=== PATIENT | male | born 1950 | race Caucasian/White ===

== ENCOUNTER → 2016-07-18 | Day surgery (SDC) | payer OTHER ==
--- NOTE | 2016-07-09 13:40 | DIAGNOSTIC IMAGING REPORT ---
CHEST 2 VIEWS ROUTINE HISTORY: Pre-op. LEFT SHOULDER IMPINGEMENT SYNDROME, AC JOINT COMPARISON: None. FINDINGS: The lungs are clear. Cardiac silhouette is top normal in size. Coronary artery stent is noted. No pleural effusions. No pneumothorax. IMPRESSION: No acute process. Electronically signed by: Aleksander Ventura M.D. 07/09/2016 1:39 PM Dictated Date/Time: 07/09/2016 1:35 PM
[2016-07-09 14:37] LABS: BASO % 0.4 %; BASO ABS # 0.02 K/uL (0-0.2); COMPLETE YES; EOS % 0.9 %; HEMATOCRIT 39.7 % (42-52); IG% 0.4 %; LYMPH % 28.8 %; LYMPH ABS # 1.58 K/uL (1.2-3.4); MEAN CORPUSCULAR HEMOGLOBIN 30.2 pg (25-34); MEAN CORPUSCULAR HGB CONC 33.5 g/dl (32-36); MEAN PLATELET VOLUME 9.4 fL (7.4-10.4); MONO % 12.6 %; NEUT % 56.9 %; PLATELET COUNT 269 K/uL (130-400); RED BLOOD COUNT 4.41 M/uL (4.7-6.1); WHITE BLOOD COUNT 5.49 K/uL (4.8-10.8)
[2016-07-09 14:49] LABS: BLOOD UREA NITROGEN 21 mg/dl (7-18); BUN/CREATININE RATIO 17.5 (10-20); CALCIUM 8.8 mg/dl (8.5-10.1); CARBON DIOXIDE 25 mmol/L (21-32); CHLORIDE 108 mmol/L (98-107); GLUCOSE 143 mg/dl (70-99); POTASSIUM 4.8 mmol/L (3.5-5.1); SODIUM 142 mmol/L (136-145)
[2016-07-09 14:52] LABS: PROTHROMBIN TIME (PATIENT) 11.1 SECONDS (9.0-12.0)
[2016-07-11 10:20] VITALS: Ht 188 cm; Wt 103.2 kg
[~2016-07-18] VITALS: Ht 188 cm; Wt 103.2 kg
[~2016-07-18] MED LIST: ACT30 PO; ASCA500 PO; ASPCH81X PO; ATOR-26 PO; ATROPINE SULFATE 0.1 MG/ML 5ML SYR IV PRN; BUPIVACAINE/EPINEPHRINE 0.25% 1:200,000 30 ML VIAL ONE; CEFAZOLIN 2000 MG/60 ML D5W IV SCH; CHOL100010 PO; DEXAMETHASONE SOD INJ 4 MG/ML VIAL ONE; EpHEDrine SULFATE INJ 50 MG/ML AMP IV PRN; EpINEphrine INJ 1MG/ML AMP 1 MG/ML AMP ONE; FENTANYL CITRATE INJ 50 MCG/1 ML 2 ML VIAL IV PRN; FENTANYL CITRATE INJ 50 MCG/1 ML 2 ML VIAL ONE; HYDROmorphone INJ 1 MG/ML SYR IV PRN; KETO10TA PO; LABETALOL HCL IV 5 MG/ML 20ML IV PRN; LACTATED RINGER'S 1000ML 1,000 ML IV SCH; LIDOCAINE HCL 1% MPF 2 ML VIAL ONE; LIDOCAINE HCL 2% 2 ML VIAL (20MG/ML) ONE; LISI-789 PO; MAGN250T3 PO; MEPERIDINE HCL 25 MG/ML CARP IV PRN; METO25TA56 PO; MIDAZOLAM HCL 1 MG/ML 2ML VIAL ONE; MULT-506 PO; ONDANSETRON INJ 2 MG/ML 2 ML VIAL IV PRN; ONDANSETRON INJ 2 MG/ML 2 ML VIAL ONE; OXYC-57 PO; OXYCODONE/ACETAMINOPHEN 5-325 TAB PO PRN; PROPOFOL IV EMULSION 10 MG/ML 20 ML VIAL IV ONE; ROPIVACAINE 0.5% 5 MG/ML 30 ML VIAL ONE; SODIUM CHLORIDE 0.9% 1000ML 1,000 ML IV SCH; VENL150C56 PO
--- NOTE | 2016-07-18 07:01 | History & Physical Bridge - SC ---
H&P Re-Evaluation Bridge Note: I have examined the patient, reviewed the History & Physical and in the interval since the performance of the History & Physical I have noted the following changes of clinical significance: No changes noted
--- NOTE | 2016-07-18 09:45 | [facility] Post Operative Brief Note ---
Immediate Operative Summary Operative Date Jul 18, 2016. Pre-Operative Diagnosis Impingement and acromial clavicular joint arthritis left shoulder Post-Operative Diagnosis same Procedure(s) Performed Left Shoulder Arthroscopy, Subacromial Decompression, Distal Clavicle Resection , Open Biceps Tenodesis Surgeon Dr Elizalde Tacker Off Surgeon(s) Julius Ochoa PA-C Findings as above Specimens 0 Complication(s) None Disposition Recovery Room / PACU
--- NOTE | 2016-07-18 10:02 | Discharge Instructions-SurgCtr ---
Discharge Instructions Visit Reason for Visit: Left Shoulder Impingement Syndrome, Ac Joint Discharge Discharge Diagnosis / Problem: SAME ABOVE Discharge Goals Goal(s): Decrease discomfort, Improve function Medications Stopped Medications Name(s): asa 81 mg, last dose 07/11/16 Restart Stopped Medication(s): MAY RESTART 07/18/2016 Activity Recommendations Activity Limitations: as noted below Lifting Limitations: until after follow-up appointment Exercise/Sports Limitations: until after follow-up appointment Shower/Bathe: may shower/bathe in 3 days Anesthesia . Post Anesthesia Instructions: If you have had General Anesthesia or IV Sedation: * Do not drive today. * Resume driving when surgeon permits. * Do not make important decisions or sign legal documents today. * Call surgeon for: 1. Temperature elevations greater than 101 degrees F. 2. Uncontrollable pain. 3. Excessive bleeding. 4. Persistent nausea and vomiting. 5. Medication intolerance (nausea, vomiting or rash). * For nausea and vomiting use only clear liquids such as: tea, soda, bouillon until nausea subsides, then gradually increase diet as tolerated. * If you have any concerns or questions, call your surgeon's office. If physician is unavailable and it is an emergency, call 911 or go to the nearest emergency room. . Instructions / Follow-Up Instructions / Follow-Up MEDICATIONS: * Resume previous medications unless instructed otherwise by your surgeon. * Always take pain medication on a full stomach or with food to avoid upset stomach. * Do not drink alcohol or drive while taking narcotics. * Ibuprofen or Tylenol may be taken if narcotic not needed. SPECIAL CARE INSTRUCTIONS: __ None _X_ Keep extremity elevated and iced x 48 hours; apply ice 20-30 minutes 8-10 times/day. May remove at night. _X_ Sling (wEAR NEEDED FOR COMFORT) __24 hrs/day __ Remove at night __ Shoulder Immobilizer __ 24 hrs/day __ Remove at night _X_ Dressing __ Maintain until seen in office, may shower with plastic over site _X_ Remove dressings in 24-48 hours and then may shower _X_ Cover incisions with band-aids after showering _X_ Do not remove steri-strips (THEY MAY FALL OFF ON THEIR OWN) Call physician if chills or temperature rises above 102 degrees or pain unrelieved by prescribed pain medications at . . Diet Recommendations Home Diet: no limitations Fluid Restriction: None Procedures Procedures Performed: Left Shoulder Arthroscopy, Acromioplasty, Distal Clavicle Resection, Open Biceps Tenodesis Pending Studies Studies pending at discharge: no Work Instructions Return To Work: after follow-up Lifting Limitations: NO LIFTING WITH LEFT ARM Medical Emergencies . Who to Call and When: Medical Emergencies: If at any time you feel your situation is an emergency, please call 911 immediately. . Non-Emergent Contact Non-Emergency issues call your: Primary Care Provider Call Non-Emergent contact if: you have a fever, temperature is above 101.5 . . "Provider Documentation" section prepared by David Ochoa.
--- NOTE | 2016-07-18 10:30 | OPERATIVE REPORT ---
DATE OF OPERATION: 07/18/2016 PREOPERATIVE DIAGNOSES: Acromioclavicular joint arthritis and external impingement of the left shoulder. POSTOPERATIVE DIAGNOSES: Acromioclavicular joint arthritis, external impingement and superior labral tear of the left shoulder. PROCEDURES: Left shoulder diagnostic arthroscopy with limited debridement, distal clavicle resection, acromioplasty and open subpectoral biceps tenodesis. SURGEON: Dr. Garth Elizalde. RUBBER GOODS TESTER: Phil Ochoa PA-C, whose assistance was necessary for positioning the arm and helping with instrumentation. ANESTHESIA: General with a left interscalene nerve block. COMPLICATIONS: None. CONDITION: Stable to PACU. INDICATIONS: Quinten is a pleasant 66-year-old male who works for [employer]. He fell off a lawnmower several months ago, sustaining an injury to his left shoulder. MRI and clinical examination were diagnostic for AC joint arthritis as well as external impingement. After failing conservative treatment, he elected to undergo arthroscopy. DESCRIPTION OF PROCEDURE: On 07/18/2016, he arrived at the [facility] for the above procedure. He was seen in the preoperative holding area and the operative extremity was identified and signed. He was given a preoperative antibiotic and taken back to the operating room, laid on the table in supine position and put under general anesthesia. He was then put into the beachchair position. The left shoulder was prepped and draped in the sterile fashion. Time-out was done and the patient and operative extremity was properly identified. A scope was introduced in the posterior portal. Diagnostic arthroscopy showed no cartilage damage to the humeral head or the glenoid. There was a large superior labral tear. The biceps tendon was generally intact. The supraspinatus, infraspinatus, teres minor and subscapularis were all checked and intact. An anterior portal was made. A shaver was used to do a limited debridement of the intraarticular structures and the biceps tendon was arthroscopically tenotomized. The scope was then put into the subacromial space. A lateral portal was made. A shaver was used to do a complete subacromial and subdeltoid bursectomy. An ablator was used to tease the coracoacromial ligament off the undersurface of the acromion and a 5-0 ted was used to complete an acromioplasty of a Bigliani type 3 acromion. A shaver was used to remove any excess debris and the bursal side of the rotator cuff was examined extensively without evidence of tear. Attention was turned to the distal clavicle. Through an anterior portal, a shaver and ablator were used to skeletonize the distal clavicle. A 5-0 ted was then used to resect the distal 7 mm from the clavicle. Complete resection was checked under direct visualization. The arthroscopic instruments removed from the shoulder. Attention was turned to an open biceps tenodesis. A small incision was made over the inferior border of the pec major. Dissection was taken down through the fascia and the long head of biceps tendon was delivered out of the wound. The tendon was then whipstitched at the anticipated level of tenodesis and the remainder of the tendon was discarded. A 6-mm hole was drilled in the bicipital groove and the biceps tendon was tenodesed with an Arthrex biceps button that was flipped and tension slide technique delivered into the 6-mm hole. This gave good fixation. The wound was then irrigated and closed with 3-0 Vicryl and a 3-0 Monocryl. Steri-strips were placed. Portal sites were closed with 3-0 nylon. He was then placed in a soft dressing and a regular arm sling. He was then extubated, transferred to a litter and taken to the postanesthesia care unit in stable condition. He tolerated the procedure well. I attest to the content of the Intraoperative Record and any orders documented therein. Any exceptio ns are noted below.
[2016-07-18 10:51] VITALS: TEMP 36.9
[2016-07-18 11:13] VITALS: BP 147/74; PULSE 63; O2SAT 95
--- NOTE | 2016-07-18 11:16 | Anesthesia Progress Nt - [facility] ---
Anesthesia Post Op Note Date & Time Jul 18, 2016 at 11:16 Vital Signs Pain Intensity: 0 Vital Signs Past 12 Hours Date Time Temp Pulse Resp B/P Pulse Ox O2 Delivery O2 Flow Rate FiO2 07/18/16 11:13 63 16 147/74 95 07/18/16 10:51 36.9 69 16 145/69 96 Room Air 07/18/16 10:41 80 19 96 07/18/16 10:41 79 19 07/18/16 10:39 156/68 07/18/16 10:38 141/84 07/18/16 10:36 36.4 79 16 156/68 95 Room Air 07/18/16 10:36 86 19 07/18/16 10:36 86 19 94 07/18/16 10:34 88/77 07/18/16 10:31 78 18 95 07/18/16 10:31 79 18 07/18/16 10:29 154/74 07/18/16 10:26 80 23 96 07/18/16 10:26 80 23 07/18/16 10:21 80 20 96 07/18/16 10:21 81 20 07/18/16 10:19 163/65 07/18/16 10:16 81 19 96 07/18/16 10:16 81 19 07/18/16 10:15 159/76 07/18/16 10:11 86 22 07/18/16 10:11 85 22 96 07/18/16 10:09 150/75 07/18/16 10:06 80 24 100 07/18/16 10:06 81 24 07/18/16 10:04 168/71 07/18/16 10:01 36.6 79 16 176/76 99 Mask 6 07/18/16 10:01 83 20 07/18/16 10:01 84 20 100 07/18/16 10:00 176/76 07/18/16 08:45 0 07/18/16 08:44 148/73 07/18/16 08:40 68 07/18/16 08:40 67 11 97 07/18/16 08:39 142/69 07/18/16 08:35 64 11 97 07/18/16 08:35 64 07/18/16 08:34 131/64 07/18/16 08:33 63 23 137/76 99 Mask 4 07/18/16 08:32 137/76 07/18/16 08:30 56 07/18/16 08:30 57 14 99 07/18/16 08:25 59 0 96 07/18/16 08:25 60 07/18/16 08:20 59 97 07/18/16 08:20 60 07/18/16 08:15 57 18 07/18/16 08:15 55 18 96 07/18/16 08:10 54 12 07/18/16 08:10 58 12 96 07/18/16 08:05 24 07/18/16 08:05 24 07/18/16 07:37 36.8 64 16 135/78 95 Room Air Notes Mental Status: alert / awake / arousable, participated in evaluation Pt Amnestic to Procedure: Yes Nausea / Vomiting: adequately controlled Pain: adequately controlled Airway Patency, RR, SpO2: stable & adequate BP & HR: stable & adequate Hydration State: stable & adequate Anesthetic Complications: no major complications apparent
== END | disposition home or self-care (01) ==
LOC: X.SURG 07:20
PROVIDERS: ATTEND Orthopaedic Surgery
DX: M75.42 Impingement syndrome of left shoulder (principal); M19.012 Primary osteoarthritis, left shoulder; S43.432A Superior glenoid labrum lesion of left shoulder, initial encounter; W28.XXXA Contact with powered lawn mower, initial encounter; Y93.89 Activity, other specified; Y92.89 Other specified places as the place of occurrence of the external cause; Y99.8 Other external cause status; I10 Essential (primary) hypertension; I51.9 Heart disease, unspecified; F32.9 Major depressive disorder, single episode, unspecified; Z95.5 Presence of coronary angioplasty implant and graft; Z98.890 Other specified postprocedural states; Z79.82 Long term (current) use of aspirin; Z79.899 Other long term (current) drug therapy

== ENCOUNTER → 2016-12-20 | Outpatient (CLI) | payer OTHER ==
[~2016-12-20] MED LIST changes: -ATROPINE SULFATE 0.1 MG/ML 5ML SYR IV PRN; -BUPIVACAINE/EPINEPHRINE 0.25% 1:200,000 30 ML VIAL ONE; -CEFAZOLIN 2000 MG/60 ML D5W IV SCH; -DEXAMETHASONE SOD INJ 4 MG/ML VIAL ONE; -EpHEDrine SULFATE INJ 50 MG/ML AMP IV PRN; -EpINEphrine INJ 1MG/ML AMP 1 MG/ML AMP ONE; -FENTANYL CITRATE INJ 50 MCG/1 ML 2 ML VIAL IV PRN; -FENTANYL CITRATE INJ 50 MCG/1 ML 2 ML VIAL ONE; -HYDROmorphone INJ 1 MG/ML SYR IV PRN; -LABETALOL HCL IV 5 MG/ML 20ML IV PRN; -LACTATED RINGER'S 1000ML 1,000 ML IV SCH; -LIDOCAINE HCL 1% MPF 2 ML VIAL ONE; -LIDOCAINE HCL 2% 2 ML VIAL (20MG/ML) ONE; -MEPERIDINE HCL 25 MG/ML CARP IV PRN; -MIDAZOLAM HCL 1 MG/ML 2ML VIAL ONE; -ONDANSETRON INJ 2 MG/ML 2 ML VIAL IV PRN; -ONDANSETRON INJ 2 MG/ML 2 ML VIAL ONE; -OXYCODONE/ACETAMINOPHEN 5-325 TAB PO PRN; -PROPOFOL IV EMULSION 10 MG/ML 20 ML VIAL IV ONE; -ROPIVACAINE 0.5% 5 MG/ML 30 ML VIAL ONE; -SODIUM CHLORIDE 0.9% 1000ML 1,000 ML IV SCH
== END | disposition home or self-care (01) ==
LOC: C.LABBFT 11:05
PROVIDERS: ATTEND Internal Medicine
DX: Z11.59 Encounter for screening for other viral diseases (principal)

== ENCOUNTER 2017-03-22 11:10 | Emergency (ER) | payer OTHER ==
[~2017-03-22] VITALS: Ht 190.5 cm; Wt 88.0 kg
[~2017-03-22 11:10] MED LIST changes: -KETO10TA PO; -OXYC-57 PO
[2017-03-22 11:12] VITALS: TEMP 37; Ht 190.5 cm; Wt 88.0 kg
[2017-03-22] MEDS ORDERED: CIPROFLOXACIN HCL 0.3% OP SOLN 2.5 ML BTL OPL ONE (11:45)
--- NOTE | 2017-03-22 11:51 | EMERGENCY ROOM VISIT NOTE ---
ED Visit Note First contact with patient: 11:17 CHIEF COMPLAINT: Left Eye injury HISTORY OF PRESENT ILLNESS: This 66-year-old male patient sustained an eye injury morning when his cell phone accidentally dropped while he was lying down and hit him in the left eye.. Since then there has been a constant moderate pain and irritation, redness and tearing in the eye. There is a mild blurring of vision at times and light bothers the eye. The vision has not been decreased over all. The patient went to [employer] this morning and was sent here for further evaluation. The patient also states that he sees a shadow on the lateral aspect of his vision. The patient denies any pressure behind his eye. REVIEW OF SYSTEMS: 6 system review was performed and was negative unless stated otherwise in history of present illness. PMH: The patient is healthy; type 2 diabetes, CAD, left shoulder surgery, cardiac stent SOCIAL HISTORY: Patient lives with his . The patient denies any tobacco use but admits to occasional alcohol use. PHYSICAL EXAM: Vital Signs: Were reviewed Reviewed Nurse's notes. GENERAL: 66- year-old male appears in no acute distress. MENTAL Status: Alert and oriented 3. EYES: The pupils are round, equal, and react to light. EOMs are full. There is discharge of clear tears from the left eye which is injected. There is no foreign body visible under athe eyelid even after lid eversion. No foreign body was seen embedded in the cornea. Slit lamp exam revealed The cornea was clear and no hyphema was seen. Fluorescein uptake was observed with ultraviolet light at 7 8 o'clock position. Left eye pressure was 20.8 and right eye pressure was 20.8 which is normal. EMERGENCY DEPARTMENT COURSE: The fluorescein was irrigated away and Ciloxan eyedrops are placed into the left eye. The patient was given the remainder of the bottle to take with him. DIAGNOSIS: Left Corneal abrasion DISCHARGE INSTRUCTIONS AND TREATMENT: Ciloxan eyedrops 2 drops to the left eye every 2 hours while awake for 2 days then 2 drops into the left eye every 4 hours while awake for an additional 3 days. Tylenol and/or ibuprofen as needed for pain. If symptoms are not improved by Friday, call Dr. Cano for recheck. If symptoms worsen in the interim, return to ER. Current/Historical Medications Scheduled Ascorbic Acid (Vitamin C), 1,000 MG PO QAM Aspirin (Aspirin Chewable), 81 MG PO QAM Atorvastatin (Lipitor), 1 TAB PO QPM Cholecalciferol (Vitamin D), 1,000 INTER.UNIT PO BID Lisinopril (Zestril), 1 TAB PO QAM Magnesium (Magnesium 250 mg), 1 TAB PO QPM Metoprolol Tartrate (Lopressor) (Lopressor), 0.5 MG PO BID Multivitamin (Multivitamin), 1 TAB PO QAM Pioglitazone (Actos), 1 TAB PO QAM Venlafaxine Hcl (Effexor Extended Rel), 1 CAP PO QAM Allergies Coded Allergies: Metformin (Unverified Adverse Reaction, Unknown, TIRED, 11/27/16) Vital Signs Date Time Temp Pulse Resp B/P (MAP) Pulse Ox O2 Delivery O2 Flow Rate FiO2 03/22/17 11:12 37.0 70 20 146/72 97 Room Air Departure Information Referrals Juan Manuel Grace M.D. (PCP) Patient Instructions [facility]
[2017-03-22 12:05] VITALS: BP 143/71; PULSE 60; O2SAT 98
== END 2017-03-22 12:07 | disposition home or self-care (01) ==
LOC: C.EDB 11:11 → C.EDD 12:07
DX: S05.02XA Injury of conjunctiva and corneal abrasion without foreign body, left eye, initial encounter (principal); W22.8XXA Striking against or struck by other objects, initial encounter

== ENCOUNTER → 2017-06-02 | Outpatient (CLI) | payer OTHER ==
--- NOTE | 2017-06-02 16:04 | DIAGNOSTIC IMAGING REPORT ---
CHEST 2 VIEWS ROUTINE CLINICAL HISTORY: Cough productive of purulent sputum. COMPARISON STUDY: Chest radiograph July 09, 2016. FINDINGS: Lung volumes are normal. No pneumothorax or pleural effusion is noted. Pulmonary vascularity is normal. Cardiomediastinal silhouette is normal. No consolidation is evident to suggest pneumonia. IMPRESSION: No acute cardiopulmonary findings. Electronically signed by: Raimundo Vazquez M.D. 06/02/2017 4:03 PM Dictated Date/Time: 06/02/2017 4:02 PM
== END | disposition home or self-care (01) ==
LOC: C.RAD1850 15:06
PROVIDERS: ATTEND Internal Medicine
DX: R05 Cough (principal)

== ENCOUNTER → 2017-08-15 | Outpatient (CLI) | payer OTHER ==
[2017-08-15 12:24] LABS: HEMATOCRIT 40.3 % (42-52); HEMOGLOBIN 13.4 g/dL (14.0-18.0); MEAN CELL VOLUME 91.4 fL (80-100); MEAN CORPUSCULAR HEMOGLOBIN 30.4 pg (25-34); MEAN CORPUSCULAR HGB CONC 33.3 g/dl (32-36); MEAN PLATELET VOLUME 9.6 fL (7.4-10.4); PLATELET COUNT 282 K/uL (130-400); RED CELL DISTRIBUTION WIDTH CV 12.5 % (11.5-14.5); RED CELL DISTRIBUTION WIDTH SD 42.5 fL (36.4-46.3); WHITE BLOOD COUNT 4.58 K/uL (4.8-10.8)
[2017-08-15 12:35] LABS: HEMOGLOBIN A1C 8.6 % (4.5-5.6)
[2017-08-15 12:52] LABS: ALBUMIN 3.6 gm/dl (3.4-5.0); ALT/SGPT 32 U/L (12-78); AST/SGOT 15 U/L (15-37); BLOOD UREA NITROGEN 20 mg/dl (7-18); CALCIUM 8.7 mg/dl (8.5-10.1); CARBON DIOXIDE 26 mmol/L (21-32); CHOLESTEROL 155 mg/dl (0-200); CREATININE 1.16 mg/dl (0.60-1.40); GLUCOSE 167 mg/dl (70-99); POTASSIUM 4.4 mmol/L (3.5-5.1); SODIUM 139 mmol/L (136-145)
[2017-08-15 12:54] LABS: ALKALINE PHOSPHATASE 73 U/L (45-117); LDL CHOLESTEROL CALCULATED 86 mg/dl; TOTAL PROTEIN 7.2 gm/dl (6.4-8.2)
== END | disposition home or self-care (01) ==
LOC: C.LAB1850 11:09
PROVIDERS: ATTEND Internal Medicine Clinical Cardiac Electrophysiology
DX: I25.10 Atherosclerotic heart disease of native coronary artery without angina pectoris (principal)